=== PATIENT | male | born 1980 | race Caucasian/White ===

== ENCOUNTER 2018-04-28 14:20 | Observation (INO) ==
[2018-04-28] MEDS ORDERED: Morphine Inj 4 MG/ML Vial IV.PUSH ONE ×2 (16:13→18:11)
[2018-04-28] MEDS ORDERED: Sod Chloride 0.9% Inj 1,000 ML IV.SIG ONE (16:13)
--- NOTE | 2018-04-28 16:21 | ED ---
HPI General Chief complaint: Abdominal Pain Stated complaint: Sharp stomach pain/N/V since saturday Time Seen by Provider: 04/28/18 16:05 Source: patient Mode of arrival: ambulatory Limitations: no limitations History of Present Illness HPI narrative: 38-year-old male here for evaluation of abdominal pain, nausea, and vomiting. Patient reports that the pain started 3 days ago, is located over his mid and lower abdomen, has been intermittent, significantly worse today , described as sharp, nonradiating, no modifying factors. Patient reports that he had a few episodes of vomiting today that consisted of food. Last bowel movement was yesterday and he states it was black. No fevers or chills. No urinary symptoms. History of Meckel's diverticulum with surgical repair with appendectomy at that time at the age of 17. He smokes about 2 packs of cigarettes daily. Denies alcohol or illicit drug use. Related Data Home Medications Medication Instructions Recorded Confirmed No Known Home Medications 04/28/18 04/28/18 Allergies Allergy/AdvReac Type Severity Reaction Status Date / Time No Known Allergies Allergy Verified 04/28/18 14:30 Review of Systems ROS: all other systems reviewed are negative PMFSH Social History Social History Substance History: No History of Abuse Smoking Status: Heavy tobacco smoker Tobacco Type: Cigarettes How Often Do You Have a Drink Containing Alcohol: Monthly or less Exam Narrative Exam Narrative: GENERAL: Well-developed, well-nourished, appears uncomfortable, no acute distress. SKIN: Focused skin assessment warm/dry. No rash. HEAD: Atraumatic. Normocephalic. EYES: Pupils equal and round. No scleral icterus. No injection or drainage. ENT: Mucous membranes pink and moist. NECK: Trachea midline. No JVD. CARDIOVASCULAR: Regular rate and rhythm. RESPIRATORY: No accessory muscle use. Clear to auscultation. Breath sounds equal bilaterally. GASTROINTESTINAL: Abdomen soft, nondistended. Moderate periumbilical and lower abdominal tenderness without peritoneal signs. Rest of abdomen is soft and nontender. Normal bowel sounds. No hernias. MUSCULOSKELETAL: No obvious deformities. No clubbing. No cyanosis. No edema. NEUROLOGICAL: Awake and alert. No obvious cranial nerve deficits. Motor grossly within normal limits. Normal speech. PSYCHIATRIC: Appropriate mood and affect; insight and judgment normal. Course Initial Documented Vital Signs Temperature 98.0 F 04/28/18 14:28 Pulse Rate 77 10/29/18 14:28 Respiratory Rate 16 04/28/18 14:28 Blood Pressure 109/72 04/28/18 14:28 Pulse Oximetry 98 04/28/18 14:28 Last Documented Vital Signs Temperature 98.0 F 04/28/18 14:28 Pulse Rate 67 04/28/18 16:53 Respiratory Rate 16 04/28/18 16:53 Blood Pressure 131/63 04/28/18 16:53 Pulse Oximetry 98 04/28/18 16:53 Medical Decision Making MDM Narrative Medical decision making narrative: Vital signs reviewed. CBC and CMP are essentially unremarkable. UA shows many mucus, not suggestive of UTI. The patient is in a monogamous relationship and does not believe he has an STI. GC and chlamydia were ordered. CT abdomen pelvis: CONCLUSION:1. Unremarkable bowel gas pattern with surgical clips along the right side of the colon.2. Unremarkable gallbladder Patient was initially provided 4 mg of IV morphine and on reassessment states his pain had improved, however is still there. On later reassessment the patient reports that his pain has returned and is significant. He has moderate periumbilical and lower abdominal tenderness. There are no peritoneal signs. He was given another 4 mg of IV morphine with some improvement in his pain. Physical exam is not consistent with an acute abdomen. He tells me that when he was 17 he had emergency surgery for gangrenous bowel and was diagnosed with a Meckel's diverticulum. He reports that he believes his appendix was taken out at that time as well. His pain may be secondary to adhesions. Either way he will be admitted for overnight observation for intractable abdominal pain. He is amenable to this plan. Case discussed with hospitalist Dr. Newman who will admit the patient to the hospitalist service. Medical Screen Exam Complete: Yes Emergency Medical Condition: Yes Differential Diagnosis Differential Diagnosis: Colitis, diverticulitis, mesenteric ischemia, bowel obstruction, pancreatitis, hepatobiliary disease, peptic ulcer disease Lab Data Result diagrams: 04/28/18 16:30 04/28/18 16:30 Lab Results 04/28/18 04/28/18 04/28/18 Range/Units 16:30 16:30 16:30 CBC w Diff Auto diff final WBC 11.3 H (4.0-11.0) th/mm3 RBC 4.44 L (4.50-5.90) mil/mm3 Hgb 14.0 (13.0-17.0) gm/dL Hct 41.2 (39.0-51.0) % MCV 92.7 (80.0-100.0) fL MCH 31.6 (27.0-34.0) pg MCHC 34.1 (32.0-36.0) % RDW 13.1 (11.6-17.2) % Plt Count 285 (150-450) th/mm3 MPV 7.4 (7.0-11.0) fL Neut % (Auto) 75.4 H (16.0-70.0) % Lymph % (Auto) 18.0 (9.0-44.0) % [place] % (Auto) 5.5 (0.0-8.0) % Eos % (Auto) 0.4 (0.0-4.0) % Baso % (Auto) 0.7 (0.0-2.0) % Neut # (Auto) 8.6 H (1.8-7.7) th/mm3 Lymph # (Auto) 2.0 (1.0-4.8) th/mm3 [place] # (Auto) 0.6 (0.0-0.9) th/mm3 Eos # (Auto) 0.0 (0.0-0.4) th/mm3 Baso # (Auto) 0.1 (0.0-0.2) th/mm3 WBC Differential . Differential Comment . PT 10.0 (9.8-11.6) sec INR 1.0 Ratio APTT 25.9 (24.3-30.1) sec Sodium 136 (136-145) meq/L Potassium 4.0 (3.5-5.1) meq/L Chloride 103 (98-107) meq/L Carbon Dioxide 28.6 (21.0-32.0) meq/L Anion Gap 4 L (5-15) meq/L BUN 13 (7-18) mg/dL Creatinine 1.30 (0.60-1.30) mg/dL Estimated GFR 62 L (>89) mL/min Random Glucose 87 (74-106) mg/dL Lactic Acid (0.4-2.0) mmol/L Calcium 8.4 L (8.5-10.1) mg/dL Magnesium 2.5 (1.5-2.5) mg/dL Total Bilirubin 0.4 (0.2-1.0) mg/dL AST 15 (15-37) U/L ALT 21 (12-78) U/L Alkaline Phosphatase 39 L (45-117) U/L Total Protein 7.2 (6.4-8.2) g/dL Albumin 3.7 (3.4-5.0) g/dL Lipase 153 (73-393) U/L Urine Color (Yellw/Straw) Urine Clarity (Clear) Urine pH (5.0-8.5) Ur Specific [place] (1.002-1.035) Urine Protein (Neg-Trace) mg/dL Urine Glucose (UA) (Negative) mg/dL Urine Ketones (Negative) mg/dL Urine Occult Blood (Negative) Urine Nitrate (Negative) Urine Bilirubin (Negative) Urine Urobilinogen (Less than 2) mg/dL Ur Leukocyte Esterase (Negative) Urine RBC (0-3) /hpf Urine WBC (0-5) /hpf Urine Bacteria (None) /hpf Urine Mucus (Occasional) /lpf Micro UA Comment Ur Microscopic Review Urine Culture Comments 04/28/18 04/28/18 Range/Units 16:30 16:30 CBC w Diff WBC (4.0-11.0) th/mm3 RBC (4.50-5.90) mil/mm3 Hgb (13.0-17.0) gm/dL Hct (39.0-51.0) % MCV (80.0-100.0) fL MCH (27.0-34.0) pg MCHC (32.0-36.0) % RDW (11.6-17.2) % Plt Count (150-450) th/mm3 MPV (7.0-11.0) fL Neut % (Auto) (16.0-70.0) % Lymph % (Auto) (9.0-44.0) % [place] % (Auto) (0.0-8.0) % Eos % (Auto) (0.0-4.0) % Baso % (Auto) (0.0-2.0) % Neut # (Auto) (1.8-7.7) th/mm3 Lymph # (Auto) (1.0-4.8) th/mm3 [place] # (Auto) (0.0-0.9) th/mm3 Eos # (Auto) (0.0-0.4) th/mm3 Baso # (Auto) (0.0-0.2) th/mm3 WBC Differential Differential Comment PT (9.8-11.6) sec INR Ratio APTT (24.3-30.1) sec Sodium (136-145) meq/L Potassium (3.5-5.1) meq/L Chloride (98-107) meq/L Carbon Dioxide (21.0-32.0) meq/L Anion Gap (5-15) meq/L BUN (7-18) mg/dL Creatinine (0.60-1.30) mg/dL Estimated GFR (>89) mL/min Random Glucose (74-106) mg/dL Lactic Acid 0.5 (0.4-2.0) mmol/L Calcium (8.5-10.1) mg/dL Magnesium (1.5-2.5) mg/dL Total Bilirubin (0.2-1.0) mg/dL AST (15-37) U/L ALT (12-78) U/L Alkaline Phosphatase (45-117) U/L Total Protein (6.4-8.2) g/dL Albumin (3.4-5.0) g/dL Lipase (73-393) U/L Urine Color Yellow (Yellw/Straw) Urine Clarity Clear (Clear) Urine pH 5.5 (5.0-8.5) Ur Specific [place] 1.025 (1.002-1.035) Urine Protein Negative (Neg-Trace) mg/dL Urine Glucose (UA) Negative (Negative) mg/dL Urine Ketones Negative (Negative) mg/dL Urine Occult Blood Negative (Negative) Urine Nitrate Negative (Negative) Urine Bilirubin Negative (Negative) Urine Urobilinogen 0.2 (Less than 2) mg/dL Ur Leukocyte Esterase Negative (Negative) Urine RBC 0-3 (0-3) /hpf Urine WBC 0-5 (0-5) /hpf Urine Bacteria Rare H (None) /hpf Urine Mucus Many H (Occasional) /lpf Micro UA Comment Culture not ind Ur Microscopic Review Microscopic reviewed Urine Culture Comments Culture not ind Imaging Data Radiologist's impression: Abdomen/Pelvis CT 04/28/18 16:13 CONCLUSION: 1. Unremarkable bowel gas pattern with surgical clips along the right side of the colon. 2. Unremarkable gallbladder. Discharge Plan Discharge Disposition Patient Disposition: 30 Still Patient Discharge Condition Condition: Stable Discharge Details Diagnosis: Intractable abdominal pain Physicians Team ED Provider: Scott Smith Primary Care Provider: Primary Care Cristina Montoya Rxs /Orders / Referrals /Forms Prescriptions: No Action No Known Home Medications RF: 0 Discharge Interventions Interventions: Vital Signs Last Done: 04/28/18 16:53 Status ED Status: With Doctor
[2018-04-28 16:49] LABS: Baso # (Auto) 0.1 th/mm3 (0.0-0.2); Baso % (Auto) 0.7 % (0.0-2.0); Eos % (Auto) 0.4 % (0.0-4.0); Hematocrit 41.2 % (39.0-51.0); Mean Corpuscular HGB Conc 34.1 % (32.0-36.0); Mean Corpuscular Hemoglobin 31.6 pg (27.0-34.0); Mean Corpuscular Volume 92.7 fL (80.0-100.0); Mean Platelet Volume 7.4 fL (7.0-11.0); Mono # (Auto) 0.6 th/mm3 (0.0-0.9); Mono % (Auto) 5.5 % (0.0-8.0); Neut # (Auto) 8.6 th/mm3 (1.8-7.7); Neut % (Auto) 75.4 % (16.0-70.0); Platelet Count 285 th/mm3 (150-450); Red Blood Count 4.44 mil/mm3 (4.50-5.90); Red Cell Distribution Width 13.1 % (11.6-17.2); White Blood Count 11.3 th/mm3 (4.0-11.0)
[2018-04-28 16:53] LABS: Bilirubin,Urine Negative (Negative); Clarity,Urine Clear (Clear); Color,Urine Yellow (Yellw/Straw); Glucose,Urine (UA) Negative (Negative); Leukocyte Esterase,Urine Negative (Negative); Nitrite,Urine Negative (Negative); PH,Urine 5.5 (5.0-8.5); Specific Gravity,Urine 1.025 (1.002-1.035); Urobilinogen,Urine 0.2 mg/dL (Less than 2)
[2018-04-28 17:06] LABS: Bacteria,Urine Rare /hpf; Mucus,Urine Many /lpf (Occasional); RBC,Urine 0-3 /hpf (0-3); WBC,Urine 0-5 /hpf (0-5)
[2018-04-28 17:10] LABS: Chloride 103 meq/L (98-107); Sodium 136 meq/L (136-145)
[2018-04-28 17:13] LABS: Calcium 8.4 mg/dL (8.5-10.1)
[2018-04-28 17:14] LABS: Albumin 3.7 g/dL (3.4-5.0); Anion Gap 4 meq/L (5-15); Blood Urea Nitrogen 13 mg/dL (7-18); Carbon Dioxide 28.6 meq/L (21.0-32.0); Glucose,Random 87 mg/dL (74-106); Lipase 153 U/L (73-393); Magnesium 2.5 mg/dL (1.5-2.5)
[2018-04-28 17:16] LABS: Activated Partial Thrombo Time 25.9 sec (24.3-30.1); Alanine Aminotransferase 21 U/L (12-78); Aspartate Aminotransferase 15 U/L (15-37)
[2018-04-28 17:17] LABS: Glomerular Filtration Rate 62 mL/min (>89)
[2018-04-28 17:18] LABS: Total Protein 7.2 g/dL (6.4-8.2)
[2018-04-28 17:19] LABS: Alkaline Phosphatase 39 U/L (45-117)
--- NOTE | 2018-04-28 17:52 | CT ---
EXAM DATE: 04/28/2018 5:46 PM EDT AGE/SEX: 38 years / Male INDICATIONS: Abdominal cramping with nausea and vomiting. CLINICAL DATA: This is the patient's initial encounter. Patient reports that signs and symptoms have been present for 3 days and indicates a pain score of 0/10. MEDICAL/SURGICAL HISTORY: None. None. ORAL CONTRAST: No oral contrast ingested. RADIATION DOSE: 9.64 CTDI (mGy) COMPARISON: . TECHNIQUE: Multiple contiguous axial images were obtained through the abdomen and pelvis following b olus infusion of 95 ml Omnipaque 350 (iohexol) nonionic water-soluble contrast as a single exam dos e. No oral contrast ingested. Using automated exposure control and adjustment of the mA and/or kV ac cording to patient size, radiation dose was kept as low as reasonably achievable to obtain optimal di agnostic quality images. DICOM format image data is available electronically for review and comparis on. FINDINGS: Lower Lungs: The visualized lower lungs are clear. Liver: The liver has a homogeneous density without space-occupying lesion. There is no dilation of th e biliary tree. The gallbladder is unremarkable in appearance. Spleen: Homogeneous density without enlargement. Pancreas: Unremarkable without mass or calcification. Kidneys: Normal in size and shape. No evidence of mass or hydronephrosis. Adrenal Glands: Unremarkable. Aorta: The aorta and proximal iliac vessels are grossly unremarkable without aneurysmal dilation. Bowel/Mesentery: No oral contrast was given limiting the sensitivity of the exam. There are surgical clips and chandrakant along the right side of the colon. The terminal ileum appears unremarkable. Abdominal Wall: Intact. Retroperitoneum: No evidence of adenopathy in the retrocrural, para-aortic, or deep pelvic regions. Bladder: Contours are smooth. Reproductive Organs: No abnormal masses or calcifications seen. Inguinal: The inguinal region is unremarkable without evidence of adenopathy. Bony Structures: Unremarkable. CONCLUSION: 1. Unremarkable bowel gas pattern with surgical clips along the right side of the colon. 2. Unremarkable gallbladder. Electronically signed by: Earnest Gardner MD 04/28/2018 5:51 PM EDT
[2018-04-28] MEDS ORDERED: Dicyclomine Inj 20 MG/2 ML Ampul IM ONE (18:44)
[2018-04-28] MEDS ORDERED: Acetaminophen 325 MG Tablet PO PRN (18:53)
[2018-04-28] MEDS ORDERED: Bisacodyl 10 MG Supp RECTAL PRN (18:53)
[2018-04-28] MEDS ORDERED: Ketorolac Inj 30 MG/ML (IVP) Vial IV.PUSH PRN (18:56)
[2018-04-28] MEDS: Sod Chloride 0.9% Inj 1,000 ML IV.CONT SCH (21:36)
[2018-04-28] MEDS: Senna/Docusate Sodium 8.6/50 MG Tablet PO SCH (21:39)
[2018-04-28] MEDS: Morphine Inj 4 MG/ML Vial IV.PUSH PRN (22:49)
[2018-04-29] MEDS: Sod Chloride 0.9% Inj 1,000 ML IV.CONT SCH ×2 (08:49→16:31)
[2018-04-29] MEDS: Senna/Docusate Sodium 8.6/50 MG Tablet PO SCH ×2 (08:50→21:26)
[2018-04-29] MEDS: Morphine Inj 4 MG/ML Vial IV.PUSH PRN (08:50)
--- NOTE | 2018-04-29 11:27 | P.HP ---
History of Present Illness Primary Care Physician: No Primary Care Physician Chief Complaint: Abdominal pain History of Present Illness: This is a 38-year-old male patient with a known medical history of Meckel's diverticulum status post appendectomy who presented to the ED with complaints of abdominal pain, nausea and vomiting times 3 days. Patient states that his pain is located in his bilateral lower quadrants, has been intermittent and worsening over the past day, he characterizes the pain is sharp and nonradiating in nature. He does admit to several episodes of vomiting yesterday although this has improved since presentation with use of Zofran. Last bowel movement was 2 days ago, he denies any black or bloody stools. He denies any recent fevers, chills, cough, headache, shortness of breath, diarrhea or dysuria. Patient states that last Saturday he did have some [place] food that he believes it started the symptoms, but the symptoms have not improved but have overall worsened over the past several days. He denies any history of colonoscopy in the past. Does admit to medical's diverticulum with surgical repair and an appendectomy in 1996, since that time he has been doing well. Does not follow with the PCP nor a primer charger. Admits to a history of 2 pack/day cigarettes. Denies any history of colon cancer in his family. Upon assessment patient states his pain is continued, states that the IV narcotics assist with the pain for short time and the pain recurs. He is tolerating a clear liquid diet without any nausea or vomiting. Gastroenterology consulted, input and recommendations pending. - Diagnosis (1) Intractable abdominal pain Review of Systems All other systems reviewed negative except as stated in HPI PMFSH - History History Provided By: Patient - Medical History Medical History: Medical History (Last Updated 04/29/18 @ 13:54 by Alison Hernandez) Meckels diverticulum Medical history non-contributory - Surgical History Surgical History: Surgical History (Last Reviewed 04/29/18 @ 13:54 by Alison Hernandez) History of appendectomy - Family History Family History: Family History (Last Updated 04/29/18 @ 13:54 by Alison Hernandez) Other Family history non-contributory - Social History I have reviewed the patient's Social History: Yes - Tobacco History Second Hand Smoke Exposure: Yes Tobacco Use In Past 30 Days: Yes Smoking Status: Heavy tobacco smoker Tobacco Type: Cigarettes - Alcohol History How Often Do You Have a Drink Containing Alcohol: Monthly or less - Substance Use History Substance History: No History of Abuse - Travel History Recent Travel in the [place] Within the Last 8 Weeks: No Recent Travel Out of the Country Within the Last 8 Weeks: No - Immunization History Tetanus Immunization: Unsure Medications and Allergies Active Medications: Active Medications Acetaminophen (Tylenol) 650 mg PO Q4H PRN PRN Reason: Temp > 100.4 Al Hydroxide/Mg Hydroxide (Milk Of Magnesia Liq) 30 ml PO Q12H PRN PRN Reason: Mild Constipation Bisacodyl (Dulcolax Supp) 10 mg RECTAL DAILY PRN PRN Reason: SEVERE CONSITIPATION Sodium Chloride (Ns Inj) 1,000 mls @ 100 mls/hr IV.CONT .Q10H [facility] Last Infusion: 04/29/18 08:49 Dose: 100 mls/hr Ketorolac Tromethamine (Toradol Inj) 30 mg IV.PUSH Q6H PRN PRN Reason: ABDOMINAL PAIN Stop: 05/03/18 18:55 Lactulose (Lactulose Liq) 30 ml PO DAILY PRN PRN Reason: SEVERE CONSITIPATION Morphine Sulfate (Morphine Inj) 4 mg IV.PUSH Q4H PRN PRN Reason: BREAKTHROUGH PAIN Last Admin: 04/29/18 08:50 Dose: 4 mg Ondansetron HCl (Zofran Inj) 4 mg IV.PUSH Q6H PRN PRN Reason: NAUSEA OR VOMITING Last Admin: 04/28/18 22:54 Dose: 4 mg Senna/Docusate Sodium (Phoebe-Colace) 1 tab PO BID [facility] Last Admin: 04/29/18 08:50 Dose: 1 tab Sennosides (Senokot) 17.2 mg PO Q12H PRN PRN Reason: Moderate Constipation Sodium Chloride (Ns Flush) 2 ml IV.FLUSH PRN PRN PRN Reason: FLUSH AFTER USING IV ACCESS Last Admin: 04/28/18 22:49 Dose: 2 ml Allergies Allergy/AdvReac Type Severity Reaction Status Date / Time No Known Allergies Allergy Verified 04/28/18 14:30 Home Medications Medication Instructions Recorded Confirmed Type No Known Home Medications 04/28/18 04/28/18 History Exam Vital signs: Vital Signs 04/28/18 14:28 04/28/18 16:53 04/28/18 20:00 Temperature 98.0 F 97.1 F L Pulse Rate 77 67 68 Respiratory Rate 16 16 18 Blood Pressure 109/72 131/63 122/72 Pulse Oximetry 98 98 97 04/28/18 20:39 04/29/18 00:00 04/29/18 08:00 Temperature 97.2 F L 97.9 F Pulse Rate 74 78 64 Respiratory Rate 14 18 20 Blood Pressure 110/71 135/80 137/61 Pulse Oximetry 99 96 96 Intake & Output 04/28/18 04/29/18 04/29/18 18:59 06:59 18:59 Intake Total 1000 / 1000 200 / 200 0 / 0 Output Total 500 / 500 500 / 500 Balance 1000 / 1000 -300 / -300 -500 / -500 Weight 87 kg 86.1 kg Intake: IV 1000 / 1000 NS Inj 1,000 ML @ Wide Open IV. 1000 / 1000 SIG BOLUS ONE Rx#:[id number] Oral 200 / 200 0 / 0 Output: Urine 500 / 500 500 / 500 Other: Date of Last Bowel Movement 04/27/18 Weight On Admission 86.1 kg Narrative: GENERAL: Well-developed, well-nourished patient in [facility]. SKIN: Warm and dry. No rash. HEAD: Normocephalic. Atraumatic. EYES: Pupils equal and round. No scleral icterus. No injection or drainage. ENT: No nasal bleeding or discharge. Mucous membranes pink and moist. NECK: Supple. Trachea midline. CARDIOVASCULAR: Regular rate and rhythm. S1, S2 noted. No murmur appreciated. RESPIRATORY: No accessory muscle use. Clear to auscultation. Breath sounds equal bilaterally. GASTROINTESTINAL: Abdomen soft, nondistended. Normoactive bowel sounds x4. Abdominal pain to palpation to bilateral lower quadrants. MUSCULOSKELETAL: No obvious deformities. Extremities without clubbing, cyanosis , or edema. NEUROLOGICAL: Awake and alert. No obvious cranial nerve deficits. Motor grossly within normal limits. 5/5 muscle strength in bilateral upper and lower extremities. Normal speech. PSYCHIATRIC: Appropriate mood and affect; insight and judgment normal. Results - Labs CBC & Chem 7: 04/28/18 16:30 04/28/18 16:30 Labs: Laboratory Results - last 24 hr 04/28/18 04/28/18 04/28/18 16:30 16:30 16:30 CBC w Diff Auto diff final WBC 11.3 H RBC 4.44 L Hgb 14.0 Hct 41.2 MCV 92.7 MCH 31.6 MCHC 34.1 RDW 13.1 Plt Count 285 MPV 7.4 Neut % (Auto) 75.4 H Lymph % (Auto) 18.0 [place] % (Auto) 5.5 Eos % (Auto) 0.4 Baso % (Auto) 0.7 Neut # (Auto) 8.6 H Lymph # (Auto) 2.0 [place] # (Auto) 0.6 Eos # (Auto) 0.0 Baso # (Auto) 0.1 WBC Differential . Differential Comment . PT 10.0 INR 1.0 APTT 25.9 Sodium 136 Potassium 4.0 Chloride 103 Carbon Dioxide 28.6 Anion Gap 4 L BUN 13 Creatinine 1.30 Estimated GFR 62 L Random Glucose 87 Lactic Acid Calcium 8.4 L Magnesium 2.5 Total Bilirubin 0.4 AST 15 ALT 21 Alkaline Phosphatase 39 L Total Protein 7.2 Albumin 3.7 Lipase 153 Urine Color Urine Clarity Urine pH Ur Specific [place] Urine Protein Urine Glucose (UA) Urine Ketones Urine Occult Blood Urine Nitrate Urine Bilirubin Urine Urobilinogen Ur Leukocyte Esterase Urine RBC Urine WBC Urine Bacteria Urine Mucus Micro UA Comment Ur Microscopic Review Urine Culture Comments 04/28/18 04/28/18 16:30 16:30 CBC w Diff WBC RBC Hgb Hct MCV MCH MCHC RDW Plt Count MPV Neut % (Auto) Lymph % (Auto) [place] % (Auto) Eos % (Auto) Baso % (Auto) Neut # (Auto) Lymph # (Auto) [place] # (Auto) Eos # (Auto) Baso # (Auto) WBC Differential Differential Comment PT INR APTT Sodium Potassium Chloride Carbon Dioxide Anion Gap BUN Creatinine Estimated GFR Random Glucose Lactic Acid 0.5 Calcium Magnesium Total Bilirubin AST ALT Alkaline Phosphatase Total Protein Albumin Lipase Urine Color Yellow Urine Clarity Clear Urine pH 5.5 Ur Specific [place] 1.025 Urine Protein Negative Urine Glucose (UA) Negative Urine Ketones Negative Urine Occult Blood Negative Urine Nitrate Negative Urine Bilirubin Negative Urine Urobilinogen 0.2 Ur Leukocyte Esterase Negative Urine RBC 0-3 Urine WBC 0-5 Urine Bacteria Rare H Urine Mucus Many H Micro UA Comment Culture not ind Ur Microscopic Review Microscopic reviewed Urine Culture Comments Culture not ind - Imaging Impressions Abdomen/Pelvis CT 10/29/18 16:13 CONCLUSION: 1. Unremarkable bowel gas pattern with surgical clips along the right side of the colon. 2. Unremarkable gallbladder. Caprini VTE Risk Assessment Caprini VTE Risk Assessment: No/Low Risk (score <= 1) Caprini Risk Assessment Model: Point Value = 1 Point Value = 2 Point Value = 3 Point Value = 5 Age 41-60 Minor surgery BMI > 25 kg/m2 Swollen legs Varicose veins or History of unexplained or recurrent spontaneous Oral contraceptives or hormone replacement Sepsis (< 1 month) Serious lung disease, including pneumonia (< 1 month) Abnormal pulmonary function Acute myocardial infarction Congestive heart failure (< 1 month) History of inflammatory bowel disease Medical patient at bed rest Age 61-74 Arthroscopic surgery Major open surgery (> 45 min) Laparoscopic surgery (> 45 min) Malignancy Confined to bed (> 72 hours) Immobilizing plaster cast Central venous access Age >= 75 History of VTE Family history of VTE Factor V Leiden Prothrombin [id number] Lupus anticoagulant Anticardiolipin antibodies Elevated serum homocysteine Heparin-induced thrombocytopenia Other congenital or acquired thrombophilia Stroke (< 1 month) Elective arthroplasty Hip, pelvis, or leg fracture Acute spinal cord injury (< 1 month) Prophylaxis Regimen: Total Risk Factor Score Risk Level Prophylaxis Regimen 0-1 Low Early ambulation 2 Moderate Order ONE of the following: *Sequential Compression Device (SCD) *Heparin 5000 units SQ BID 3-4 Higher Order ONE of the following medications: *Heparin 5000 units SQ TID *Enoxaparin/Lovenox 40 mg SQ daily (WT < 150 kg, CrCl > 30 mL/min) *Enoxaparin/Lovenox 30 mg SQ daily (WT < 150 kg, CrCl > 10-29 mL/min) *Enoxaparin/Lovenox 30 mg SQ BID (WT < 150 kg, CrCl > 30 mL/min) AND/OR *Sequential Compression Device (SCD) 5 or more Highest Order ONE of the following medications: *Heparin 5000 units SQ TID (Preferred with Epidurals) *Enoxaparin/Lovenox 40 mg SQ daily (WT < 150 kg, CrCl > 30 mL/min) *Enoxaparin/Lovenox 30 mg SQ daily (WT < 150 kg, CrCl > 10-29 mL/min) *Enoxaparin/Lovenox 30 mg SQ BID (WT < 150 kg, CrCl > 30 mL/min) AND *Sequential Compression Device (SCD) Assessment and Plan - Assessment (1) Intractable abdominal pain Code(s): R10.9 - Unspecified abdominal pain Status: Acute - Plan This is a 38-year-old male patient with: Intractable abdominal pain Nausea and vomiting History of Meckel's diverticulum -Patient complaints of abdominal pain, nausea and vomiting x 3 days. -Abdominal/pelvis CT reviewed and not showing any acute findings. -Ensure hydration, continue IVF. Encourage PO intake as tolerated. -Zofran available as needed for nausea. -Pain control with [place] PO per pain scale as needed as well as Morphine IV as needed for breakthrough. -Consult placed to gastroenterology, input and recommendations pending. No improvement of pain since presentation. -Await clinical improvement. Monitor closely. Leukocytosis, mild -WBC 11,000 on presentation. Afebrile. Monitor for infection. -BMP reviewed and essentially unremarkable. UA. negative. -CBC in am. Follow. Tobacco abuse: Encourage cessation. Nicotine patch offered, refused at this time. DVT Prophylaxis: SCDs, ambulation as tolerated. Discharge Planning: Await GI recommendations and clinical improvement.
[2018-04-29 16:44] LABS: Amphetamine Screen,Urine Neg (Neg); Barbiturate Screen,Urine Neg (Neg); Cannabinoid Screen,Urine Neg (Neg); Cocaine Screen,Urine Neg (Neg)
[2018-04-29 17:02] LABS: Opiate Screen,Urine Neg (Neg)
[2018-04-29] MEDS ORDERED: Morphine Sulfate Inj 2 MG/ML Vial IV.PUSH PRN (17:30)
[2018-04-30] MEDS: Sod Chloride 0.9% Inj 1,000 ML IV.CONT SCH (06:04)
[2018-04-30 07:35] LABS: Baso % (Auto) 0.1 % (0.0-2.0); Eos # (Auto) 0.1 th/mm3 (0.0-0.4); Eos % (Auto) 1.3 % (0.0-4.0); Hematocrit 39.4 % (39.0-51.0); Hemoglobin 13.1 gm/dL (13.0-17.0); Lymph # (Auto) 1.8 th/mm3 (1.0-4.8); Lymph % (Auto) 23.2 % (9.0-44.0); Mean Corpuscular HGB Conc 33.3 % (32.0-36.0); Mean Corpuscular Hemoglobin 30.6 pg (27.0-34.0); Mean Corpuscular Volume 91.9 fL (80.0-100.0); Mean Platelet Volume 7.8 fL (7.0-11.0); Mono # (Auto) 0.9 th/mm3 (0.0-0.9); Mono % (Auto) 10.8 % (0.0-8.0); Neut # (Auto) 5.1 th/mm3 (1.8-7.7); Neut % (Auto) 64.6 % (16.0-70.0); Platelet Count 271 th/mm3 (150-450); Red Blood Count 4.28 mil/mm3 (4.50-5.90); Red Cell Distribution Width 13.4 % (11.6-17.2); White Blood Count 7.9 th/mm3 (4.0-11.0)
--- NOTE | 2018-04-30 09:04 | P.DS ---
Date of admission: 04/28/18 18:54 Primary care physician: No Primary Care Physician Anticipated date of discharge: 04/30/18 Brief History from admission: This is a 38-year-old male patient with a known medical history of Meckel's diverticulum status post appendectomy who presented to the ED with complaints of abdominal pain, nausea and vomiting times 3 days. Patient states that his pain is located in his bilateral lower quadrants, has been intermittent and worsening over the past day, he characterizes the pain is sharp and nonradiating in nature. He does admit to several episodes of vomiting yesterday although this has improved since presentation with use of Zofran. Last bowel movement was 2 days ago, he denies any black or bloody stools. He denies any recent fevers, chills, cough, headache, shortness of breath, diarrhea or dysuria. Patient states that last Saturday he did have some [place] food that he believes it started the symptoms, but the symptoms have not improved but have overall worsened over the past several days. He denies any history of colonoscopy in the past. Does admit to medical's diverticulum with surgical repair and an appendectomy in 1996, since that time he has been doing well. Does not follow with the PCP nor a screening unit registered nurse. Admits to a history of 2 pack/day cigarettes. Denies any history of colon cancer in his family. Upon assessment patient states his pain is continued, states that the IV narcotics assist with the pain for short time and the pain recurs. He is tolerating a clear liquid diet without any nausea or vomiting. Gastroenterology consulted, input and recommendations pending. DS: Diagnosis - Discharge Diagnosis (1) Intractable abdominal pain Status: Acute DS: Medications - Discharge Medications Prescriptions: alum-mag hydroxide-simeth [Mag-Al Plus] 2 ml PO Q4H PRN #1 bottle PRN Reason: Dyspepsia hydrocodone-acetaminophen [[place]] 1 tab PO Q4H PRN #10 tab PRN Reason: Pain pantoprazole [Protonix] 40 mg PO DAILY 14 Days each DS: Summary Hospital Course: This is a 38-year-old male patient with intractable abdominal pain, and nausea and vomiting, has a history of Meckel's diverticulum. Abdominal/pelvis CT reviewed and not showing any acute findings. Zofran available as needed for nausea. Pain control with [place] PO per pain scale as needed as well as Morphine IV as needed for breakthrough during hospitalization. Improvement of pain since presentation, is doing much improved since presentation. Leukocytosis, WBC 11, 000 on presentation. BMP reviewed and essentially unremarkable. UA. negative. Tobacco abuse: Encourage cessation. Nicotine patch offered, refused at this time. Patient wants to go home today. Pain medications as dc plan. Follow up PCP. Much improved. Activity and diet as tolerated. - Time Spent with Patient Total time spent providing and/or coordinating discharge services: Greater than 30 minutes - Quality: VTE Deep Vein Thrombosis/Pulmonary Embolism Present on Admission: No Exam Vital signs: Vital Signs 04/29/18 12:00 04/29/18 16:00 04/29/18 20:00 Temperature 97.8 F 97.5 F L 97.7 F Pulse Rate 65 62 80 Respiratory Rate 19 19 18 Blood Pressure 123/67 122/67 128/74 Pulse Oximetry 97 97 97 04/30/18 01:31 Temperature 97.2 F L Pulse Rate 77 Respiratory Rate 18 Blood Pressure 123/74 Pulse Oximetry 98 Intake & Output 04/29/18 04/30/18 04/30/18 18:59 06:59 18:59 Intake Total 480 / 480 3000 / 3000 Output Total 1000 / 1000 1500 / 1500 Balance -520 / -520 1500 / 1500 Weight 86.1 kg Intake: IV 1000 / 1000 NS Inj 1,000 ML @ 100 mls/hr IV 1000 / 1000 .CONT .Q10H [facility] Rx#:[id number] Oral 480 / 480 2000 / 2000 Output: Urine 1000 / 1000 1500 / 1500 Other: Date of Last Bowel Movement 04/29/18 Narrative: GENERAL: Well-developed, well-nourished patient in [facility]. SKIN: Warm and dry. No rash. HEAD: Normocephalic. Atraumatic. EYES: Pupils equal and round. No scleral icterus. No injection or drainage. ENT: No nasal bleeding or discharge. Mucous membranes pink and moist. NECK: Supple. Trachea midline. CARDIOVASCULAR: Regular rate and rhythm. S1, S2 noted. No murmur appreciated. RESPIRATORY: No accessory muscle use. Clear to auscultation. Breath sounds equal bilaterally. GASTROINTESTINAL: Abdomen soft, nondistended. Normoactive bowel sounds x4. MUSCULOSKELETAL: No obvious deformities. Extremities without clubbing, cyanosis , or edema. NEUROLOGICAL: Awake and alert. No obvious cranial nerve deficits. Motor grossly within normal limits. 5/5 muscle strength in bilateral upper and lower extremities. Normal speech. PSYCHIATRIC: Appropriate mood and affect; insight and judgment normal. Results Procedures completed during hospitalization: See above. Labs on day of discharge: Labs from last 24 hours 04/30/18 04/29/18 06:37 16:15 CBC w Diff Auto diff final WBC 7.9 RBC 4.28 L Hgb 13.1 Hct 39.4 MCV 91.9 MCH 30.6 MCHC 33.3 RDW 13.4 Plt Count 271 MPV 7.8 Neut % (Auto) 64.6 Lymph % (Auto) 23.2 Ralls % (Auto) 10.8 H Eos % (Auto) 1.3 Baso % (Auto) 0.1 Neut # (Auto) 5.1 Lymph # (Auto) 1.8 Ralls # (Auto) 0.9 Eos # (Auto) 0.1 Baso # (Auto) 0.0 WBC Differential . Differential Comment . Urine Opiates Screen Neg Ur Barbiturates Screen Neg Ur Amphetamines Screen Neg U Benzodiazepines Scrn Neg Urine Cocaine Screen Neg U Cannabinoids Screen Neg - Impressions ITS Impressions Abdomen/Pelvis CT 04/28/18 16:13 CONCLUSION: 1. Unremarkable bowel gas pattern with surgical clips along the right side of the colon. 2. Unremarkable gallbladder. Discharge Plan - Discharge Disposition Patient Disposition: 01 Discharge Home - Discharge Condition Condition: Stable - Discharge Order Discharge Orders: Discharge Order (Routine); Ordered 04/30/18 Ordered By: Alison Hernandez - Discharge Details Anticipated Discharge Date: 04/30/18 - Physicians Team Primary Care Provider: Primary Care Cristina Montoya Attending Provider: Damien Richards
== END 2018-04-30 10:04 | disposition home or self-care (01) ==
LOC: PHEDA 14:20 → PHED 14:20 → PH3 20:58
PROVIDERS: ADMIT Internal Medicine; ATTEND Internal Medicine